=== PATIENT | female | born 1955 | race Caucasian/White ===

== ENCOUNTER 2017-05-18 08:33 | Outpatient (CLI) | payer OTHER ==
--- NOTE | 2017-05-18 13:25 | DEXA Report ---
DEXA SCAN: 05/18/2017 CLINICAL INDICATION: Postmenopausal. TECHNIQUE: Dual energy x-ray absorptiometry (DXA) was performed on a HBCS system. Regions measured are the AP spine, femoral neck, and, if needed, forearm. COMPARISON: None. In accordance with the International Society for Clinical Densitometry (ISCD) guidelines, data from previous exams may be reanalyzed using current recommendations and techniques. This is done to allow a more accurate basis for comparison with the current study. FINDINGS: The data for the lumbar spine is as follows: REGION BMD (g/cm/cm) T-SCORE Z-SCORE L1 1.320 1.6 2.4 L2 1.259 0.5 1.3 L3 1.363 1.4 2.2 L4 1.400 1.7 2.5 TOTAL 1.341 1.3 2.2 NOTE: All evaluable vertebrae are used for classification. The data for the hip is as follows: REGION BMD (g/cm/cm) T-SCORE Z-SCORE Neck 0.912 -0.9 0.1 TOTAL 0.962 -0.4 0.3 NOTE: The femoral neck or total proximal femur, whichever is lowest, is used for classification. IMPRESSION: THE WHO CLASSIFICATION BASED ON THE INTERNATIONAL REFERENCE STANDARD IS NORMAL. THE FRACTURE RISK IS NOT INCREASED. RECOMMENDATION: Patients with diagnosis of osteoporosis or osteopenia should have regular bone mineral density assessment. For those eligible for Medicare, routine testing is allowed once every 2 years. Testing frequency can be increased for patients who have rapidly progressing disease or for those who are receiving medical therapy to restore bone mass. COMMENT: World Health Organization (WHO) definitions for osteoporosis and osteopenia: NORMAL BMD: T-score at -1.0 or higher, fracture risk is low. OSTEOPENIA BMD: T-score between -1.0 and -2.5, fracture risk is increased. OSTEOPOROSIS BMD: T-score at -2.5 or lower, fracture risk high. National Osteoporosis Foundation recommends: 1. Obtain adequate dietary calcium (at least 1200 mg per day) and vitamin D (400 -800 international units per day). 2. Participate, as appropriate, in regular weightbearing and muscle- strengthening exercise. 3. Avoid tobacco use and reduce alcohol and caffeine intake. 4. For more detailed information see the website at www.NOF.org. MTDD
== END 2017-05-18 08:34 | disposition home or self-care (01) ==
LOC: DI 08:33
PROVIDERS: ATTEND Internal Medicine
DX: Z13.820 Encounter for screening for osteoporosis (principal)
CPT/HCPCS: 77080

== ENCOUNTER 2017-07-10 09:52 | Outpatient (CLI) | payer OTHER | END 2017-07-10 09:53 | disposition home or self-care (01) | LOC: LAB 09:52 | PROVIDERS: ATTEND Obstetrics & Gynecology | DX: E00.9 Congenital iodine-deficiency syndrome, unspecified (principal) | CPT/HCPCS: 84439; 84443; 84481 ==

== ENCOUNTER 2017-07-22 10:53 | Outpatient (CLI) | payer OTHER ==
--- NOTE | 2017-07-23 18:40 | Mammography Report ---
DIGITAL SCREENING MAMMOGRAM: 07/22/2017 CLINICAL INDICATION: A 61-year-old with history of benign biopsy, history of late childbearing for s creening. COMPARISON: 07/2016, 06/2015, 05/2013, 03/2012, 02/2011, 02/2010. TECHNIQUE: Routine CC and MLO projections were obtained of the breasts. FINDINGS: The breasts again demonstrate heterogeneously dense fibroglandular parenchyma bilaterally. Postreduction changes are stable. Coarse, typically benign calcifications are present. No suspici ous masses, clustered microcalcifications, or regions of architectural distortion are identified. IMPRESSION: BENIGN FINDINGS. RECOMMENDATION: Routine annual screening unless otherwise clinically indicated. BI-RADS category 2, benign findings. STANDARD QUALIFYING STATEMENTS 1. This examination was reviewed with the aid of Computer-Aided Detection (CAD). 2. A negative or benign imaging report should not delay biopsy if clinically suspicious findings are present. Consider surgical consultation if warranted. More than 5% of cancers are not identified by i maging. 3. Dense breasts may obscure an underlying neoplasm. JOB #: [id number] EXT JOB #:[id number]
== END 2017-07-22 10:54 | disposition home or self-care (01) ==
LOC: DI 10:53
PROVIDERS: ATTEND Obstetrics & Gynecology
DX: Z12.31 Encounter for screening mammogram for malignant neoplasm of breast (principal)
CPT/HCPCS: 77067

== ENCOUNTER 2017-08-13 18:28 | Outpatient (CLI) | payer OTHER ==
--- NOTE | 2017-08-14 09:40 | XRAY Report ---
CERVICAL SPINE THREE VIEWS: 08/13/2017 CLINICAL HISTORY: Neck pain, right arm tingling. COMPARISON: None. FINDINGS: The cervical vertebral bodies are normal in height and alignment. There is mild C5-6 disk space narrowing. The remaining disk spaces are well maintained. The C1-2 relationship is anatomic. No significant facet joint arthropathy. No prevertebral soft tissue swelling. IMPRESSION: EARLY C5-6 DEGENERATIVE DISK DISEASE, OTHERWISE NEGATIVE CERVICAL SPINE. JOB #: [id number] EXT JOB #:[id number]
== END 2017-08-13 18:29 | disposition home or self-care (01) ==
LOC: DI 18:28
PROVIDERS: ATTEND Family Medicine
DX: M50.322 Other cervical disc degeneration at C5-C6 level (principal)
CPT/HCPCS: 72040

== ENCOUNTER 2018-02-04 14:11 | Outpatient (CLI) | payer BC, OTHER ==
--- NOTE | 2018-02-04 17:12 | Ultrasound Report ---
LIMITED UNILATERAL RIGHT BREAST ULTRASOUND: 02/04/2018 COMPARISON: Mammogram 07/22/2017. INDICATION: Palpable lump right breast at 3 o'clock. TECHNIQUE: Sonographic evaluation of the right breast at 3 o'clock, 10 cm from the nipple. FINDINGS: There is no mass. abnormal fluid collection, or dilated duct. No other sonographic abnormality is demonstrated. IMPRESSION: 1. BI-RADS CATEGORY 1, NEGATIVE. 2. RECOMMEND ANNUAL SCREENING MAMMOGRAM IN THE ABSENCE OF ADDITIONAL CLINICAL CONCERNS. TD: 02/04/2018 17:12 MOOK
--- NOTE | 2018-02-04 17:24 | Mammography Report ---
RIGHT DIGITAL DIAGNOSTIC MAMMOGRAM: 02/04/2018 COMPARISON: Mammogram 07/22/2017. INDICATION: Palpable right breast lump at 3 o'clock. TECHNIQUE: Right MLO and CC breast views were performed. FINDINGS: The breast parenchyma is heterogeneously dense which may limit the sensitivity of mammography. No dominant mass, architectural distortion, or concerning cluster of microcalcifications are seen. Focused sonography of the right breast at 3 o'clock, 10 cm from the nipple demonstrates no mass, abnormal fluid collection, or dilated duct. No sonographic abnormalities otherwise. IMPRESSION: 1. BI-RADS CATEGORY 1, NEGATIVE. 2. RECOMMEND ANNUAL SCREENING MAMMOGRAM IN THE ABSENCE OF ADDITIONAL CLINICAL CONCERNS. STANDARD QUALIFYING STATEMENTS 1. This examination was reviewed with the aid of Computed-Aided Detection (CAD) . 2. A negative or benign imaging report should not delay biopsy if clinically suspicious findings are present. Consider surgical consultation if warranted. More than 5 % of cancers are not identified by imaging. 3. Dense breasts may obscure an underlying neoplasm. TD: 02/04/2018 17:23 MOOK
== END 2018-02-04 14:12 | disposition home or self-care (01) ==
LOC: DI 14:11
PROVIDERS: ATTEND Obstetrics & Gynecology
DX: N64.4 Mastodynia (principal)
CPT/HCPCS: 76642

== ENCOUNTER 2018-08-13 15:41 | Outpatient (CLI) | payer BC ==
--- NOTE | 2018-08-16 09:15 | Mammography Report ---
Reason: SCREENING MAMMO Procedure Date: 08/13/2018 Accession Number: [id number] / [id number] Procedure: SHANON - Screening Mammo Dig Bilat CPT Code: FULL RESULT: EXAM: Screening Mammo Dig Bilat DATE: 08/13/2018 4:26 PM CLINICAL HISTORY: 62-year-old female with history of late childbearing and right breast biopsy with benign results. TECHNIQUE: Bilateral CC and MLO views were obtained. COMPARISON: 02/04/2018, 07/22/2017, 08/04/2016, 07/23/2015. FINDINGS: The breasts demonstrate scattered fibroglandular densities bilaterally. What is felt to represent post breast reduction changes are stable. There is a developing asymmetry seen on the left MLO view only in the upper breast 9 cm deep to the nipple. This requires additional spot magnification or tomographic views. No other suspicious masses, clustered microcalcifications, or regions of architectural distortion are identified. IMPRESSION: Incomplete examination RECOMMENDATION: Additional evaluation as above. BIRADS CATEGORY 0: Incomplete examination STANDARD QUALIFYING STATEMENTS: 1. This examination was not reviewed with the aid of Computer-Aided Detection (CAD). 2. A negative or benign imaging report should not delay biopsy if clinically suspicious findings are present. Consider surgical consultation if warrented. More than 5% of cancers are not identified by imaging. 3. Dense breasts may obscure an underlying neoplasm.
== END 2018-08-13 15:42 | disposition home or self-care (01) ==
LOC: DI 15:41
PROVIDERS: ATTEND Radiology Diagnostic Radiology
DX: Z12.31 Encounter for screening mammogram for malignant neoplasm of breast (principal)
CPT/HCPCS: 77067

== ENCOUNTER 2018-09-07 13:59 | Outpatient (CLI) | payer BC ==
--- NOTE | 2018-09-07 16:12 | Mammography Report ---
Reason: ABN MAMMO - LT SP VIEWS Procedure Date: 09/07/2018 Accession Number: [id number] / [id number] Procedure: SHANON - Diag Special Views Dig LT CPT Code: FULL RESULT: EXAM: Diag Special Views Dig LT, Breast Unilateral Limited Ultrasound DATE: 09/07/2018 3:37 PM CLINICAL HISTORY: Follow-up abnormal mammogram. Patient has a history of breast reduction surgery. LEFT BREAST ADDITIONAL VIEWS: TECHNIQUE: Spot compression, true lateral, and repeat CC views COMPARISON: 08/13/2018 FINDINGS: Asymmetric left upper outer quadrant density partially dissipates on additional views. No dominant mass is seen. LEFT BREAST ULTRASOUND: TECHNIQUE: Real-time scanning by the commercial collections specialist of the left upper outer quadrant with saved static images reviewed. FINDINGS: No cystic or solid mass, or posterior shadowing is seen. IMPRESSION: Benign findings likely related to prior reduction surgery. RECOMMENDATION: Follow-up left breast mammogram in 6 months. BIRADS CATEGORY 2: Benign findings STANDARD QUALIFYING STATEMENTS: 1. This examination was reviewed with the aid of Computer-Aided Detection (CAD). 2. A negative or benign imaging report should not delay biopsy if clinically suspicious findings are present. Consider surgical consultation if warrented. More than 5% of cancers are not identified by imaging. 3. Dense breasts may obscure an underlying neoplasm.
== END 2018-09-07 14:00 | disposition home or self-care (01) ==
LOC: DI 13:59
PROVIDERS: ATTEND Family Medicine
DX: R92.8 Other abnormal and inconclusive findings on diagnostic imaging of breast (principal)
CPT/HCPCS: 76642

== ENCOUNTER 2019-06-10 16:53 | Outpatient (CLI) | payer BC | END 2019-06-10 23:59 | disposition home or self-care (01) | LOC: LAB.R 16:53 | PROVIDERS: ATTEND Obstetrics & Gynecology | DX: R30.0 Dysuria (principal) | CPT/HCPCS: 87086 ==

== ENCOUNTER 2019-06-16 10:11 | Outpatient (CLI) | payer BC ==
--- NOTE | 2019-06-16 16:26 | Mammography Report ---
Reason: 6 MO F/U - ABN MAMMO Procedure Date: 06/16/2019 Accession Number: [id number] / [id number] Procedure: SHANON - Diagnostic Dig Bilat CPT Code: FULL RESULT: EXAM: Diagnostic Dig Bilat DATE: 06/16/2019 11:15 AM CLINICAL HISTORY: Diagnostic examination. History of late childbearing. History of right breast biopsy with benign pathology results. Short-term follow-up of previous mammographic evaluation. TECHNIQUE: (B) - Bilateral CC and MLO views were obtained. Left spot CC, right laterally exaggerated CC, left spot MLO and left ML images are also obtained. COMPARISON: 09/07/2018 through 07/23/2015. PARENCHYMAL PATTERN: (A) - The breast(s) demonstrate(s) scattered fibroglandular densities. FINDINGS: Presumed postreduction changes are stable. There are no suspicious masses, calcifications, or areas of distortion. IMPRESSION: Benign findings. BI-RADS category 2. RECOMMENDATION: (ANNUAL) - Recommend routine annual screening mammography. BI-RADS CATEGORY: (2) - Benign Findings. STANDARD QUALIFYING STATEMENTS: 1. This examination was not reviewed with the aid of Computer-Aided Detection (CAD). 2. A negative or benign imaging report should not preclude biopsy if clinically suspicious findings are present. 3. Dense breasts may obscure an underlying neoplasm. 4. This examination was reviewed with the aid of 3D breast imaging (tomosynthesis).
== END 2019-06-16 10:12 | disposition home or self-care (01) ==
LOC: DI 10:11
PROVIDERS: ATTEND Family Medicine
DX: R92.8 Other abnormal and inconclusive findings on diagnostic imaging of breast (principal)
CPT/HCPCS: 77062; 77066

== ENCOUNTER 2019-10-08 07:08 | Outpatient (CLI) | payer BC ==
[2019-10-08 07:38] LABS: BASOPHILS # (AUTO) 0.1 10^3/uL (0.0-0.1); BASOPHILS % (AUTO) 0.6 %; EOSINOPHILS # (AUTO) 0.2 10^3/uL (0.0-0.7); HGB - HEMOGLOBIN 13.8 g/dL (12.0-16.0); LYMPHOCYTES # (AUTO) 3.4 10^3/uL (1.5-3.5); LYMPHOCYTES % (AUTO) 42.4 %; MEAN CORPUSCULAR HEMOGLOBIN 29.8 pg (27.0-31.0); MEAN CORPUSCULAR HGB CONC 33.2 g/dL (32.0-36.0); MEAN CORPUSCULAR VOLUME 89.8 fL (81.0-99.0); MEAN PLATELET VOLUME 10.1 fL (7.9-10.8); MONOCYTES # (AUTO) 0.7 10^3/uL (0.0-1.0); NEUTROPHILS # (AUTO) 3.7 10^3/uL (1.5-6.6); NEUTROPHILS % (AUTO) 45.8 %; PLT - PLATELET COUNT 324 10^3/uL (130-450); RED BLOOD COUNT 4.63 10^6/uL (4.20-5.40); RED CELL DISTRIBUTION WIDTH 13.2 % (12.0-15.0); WHITE BLOOD COUNT 8.1 x10^3/uL (4.8-10.8)
[2019-10-08 07:57] LABS: ALBUMIN 4.1 g/dL (3.2-5.5); ALBUMIN/GLOBULIN RATIO 1.1 (1.0-2.2); ALKALINE PHOSPHATASE 58 IU/L (42-121); ALT ALANINE AMINOTRANSFERASE 39 IU/L (10-60); AST ASPARTATE AMINOTRANSFERASE 26 IU/L (10-42); BILIRUBIN,TOTAL 0.6 mg/dL (0.2-1.0); BUN - BLOOD UREA NITROGEN 25 mg/dL (6-20); CALCIUM 9.4 mg/dL (8.5-10.3); CARBON DIOXIDE - CO2 27 mmol/L (21-32); CHLORIDE 100 mmol/L (101-111); CHOLESTEROL 229 mg/dL; CREATININE 0.8 mg/dL (0.4-1.0); GFR - MDRD 72 (>89); GLUCOSE 137 mg/dL (70-100); HDL CHOLESTEROL 46 mg/dL; LDL CHOLESTEROL,CALCULATED 127 mg/dL; LDL/HDL RATIO 2.8 (<4.4); SODIUM 135 mmol/L (135-145); TOTAL PROTEIN 7.7 g/dL (6.7-8.2); VLDL CHOLESTEROL 56 mg/dL
[2019-10-08 08:17] LABS: HB2 TOTAL 13.8 g/dL; HEMOGLOBIN A1C 0.7 g/dL; HEMOGLOBIN A1C % 6.8 % (4.6-6.2)
[2019-10-08 08:20] LABS: T4 (THYROXINE) 9.95 ug/dL (6.09-12.23)
[2019-10-08 08:24] LABS: THYROID STIMULATING HORMONE 1.44 uIU/mL (0.34-5.60)
== END 2019-10-08 07:09 | disposition home or self-care (01) ==
LOC: LAB 07:08
PROVIDERS: ATTEND Family Medicine
DX: E74.9 Disorder of carbohydrate metabolism, unspecified (principal); E03.9 Hypothyroidism, unspecified; E78.2 Mixed hyperlipidemia; R03.0 Elevated blood-pressure reading, without diagnosis of hypertension
CPT/HCPCS: 36415; 80053; 80061; 83036; 83721; 84436; 84443; 85025

== ENCOUNTER 2019-12-23 10:37 | Outpatient (CLI) | payer OTHER ==
--- NOTE | 2019-12-23 13:26 | XRAY Report ---
Reason: PAINFUL 4TH RT TOE Procedure Date: 12/23/2019 Accession Number: [id number] / [id number] Procedure: XR - Toe(s) RT CPT Code: Final Report FULL RESULT: EXAM: RIGHT TOE RADIOGRAPHY EXAM DATE: 12/23/2019 10:47 AM. CLINICAL HISTORY: Painful fourth right toe. COMPARISON: None. TECHNIQUE: 3 views. FINDINGS: Bones: Normal. No fracture or bone lesion. Joints: There is question of periarticular osteopenia as seen in the proximal aspects of the distal third and fourth phalanx without additional evidence of erosions. No subluxations. Soft Tissues: Normal. No soft tissue swelling. IMPRESSION: Question subtle periarticular osteopenia. This can be seen with inflammatory arthropathies. No related radiographic findings are identified. No acute traumatic injuries detected. RADIA
== END 2019-12-23 10:38 | disposition home or self-care (01) ==
LOC: DI 10:37
PROVIDERS: ATTEND Podiatrist
DX: M79.674 Pain in right toe(s) (principal)
CPT/HCPCS: 73660

== ENCOUNTER 2020-07-18 10:03 | Outpatient (CLI) | payer BC, OTHER ==
--- NOTE | 2020-07-19 07:29 | Mammography Report ---
BILATERAL DIGITAL SCREENING MAMMOGRAM 3D/2D: 07/18/2020 CLINICAL: Routine screening. Comparison is made to exams dated: 06/16/2019 mammogram, 07/22/2017 mammogram, 02/04/2018 mammogram, mammogram, 08/04/2016 mammogram, and 07/23/2015 mammogram - [facility]. The tissue of both breasts is heterogeneously dense. This may lower the sensitivity of mammography. There are benign post operative findings in both breasts. No significant masses, calcifications, or other findings are seen in either breast. There has been no significant interval change. IMPRESSION: BENIGN There is no mammographic evidence of malignancy. A 1 year screening mammogram is recommended. This exam was interpreted at Station ID: [id number]. NOTE: For mammograms, a report in lay terms will be sent to the patient. Approximately 15% of breast malignancies will not be visualized mammographically. In the management of a palpable breast mass, a negative mammogram must not discourage biopsy of a clinically suspicious lesion. Electronically Signed By: Macario goldman/gregg:07/18/2020 16:05:10 ACR BI-RADS Category 2: Benign Finding(s) 3342F PARENCHYMAL PATTERN: (D) - The breast(s) demonstrate(s) heterogeneously dense fibroglandular ruben velázquez. BI-RADS CATEGORY: (2) - 2 RECOMMENDATION: (ANNUAL) - Recommend routine annual screening mammography. [id number] 1 year screening LATERALITY: (B)
== END 2020-07-18 10:04 | disposition home or self-care (01) ==
LOC: DI.N 10:03
DX: Z12.31 Encounter for screening mammogram for malignant neoplasm of breast (principal)
CPT/HCPCS: 77063; 77067

== ENCOUNTER 2021-06-24 09:24 | Outpatient (CLI) | payer OTHER ==
--- NOTE | 2021-06-25 13:56 | Mammography Report ---
BILATERAL DIGITAL SCREENING MAMMOGRAM 3D/2D: 06/24/2021 CLINICAL: Routine screening. Comparison is made to exams dated: 07/18/2020 mammogram, 06/16/2019 mammogram, 09/07/2018 ultrasound, 09/07/2018 mammogram, 02/04/2018 ultrasound, and 02/04/2018 mammogram - [facility]. The tissue of both breasts is heterogeneously dense. This may lower the sensitivity of mammography. There are benign post operative findings in both breasts. No significant masses, calcifications, or other findings are seen in either breast. There has been no significant interval change. IMPRESSION: BENIGN There is no mammographic evidence of malignancy. A 1 year screening mammogram is recommended. This exam was interpreted at Station ID: [id number]. NOTE: For mammograms, a report in lay terms will be sent to the patient. Approximately 15% of breast malignancies will not be visualized mammographically. In the management of a palpable breast mass, a negative mammogram must not discourage biopsy of a clinically suspicious lesion. Electronically Signed By: Aftab arcos/gregg:06/24/2021 13:13:39 ACR BI-RADS Category 2: Benign Finding(s) 3342F PARENCHYMAL PATTERN: (D) - The breast(s) demonstrate(s) heterogeneously dense fibroglandular ruben velázquez. BI-RADS CATEGORY: (2) - 2 RECOMMENDATION: (ANNUAL) - Recommend routine annual screening mammography. [id number] 1 year screening LATERALITY: (B)
== END 2021-06-24 09:25 | disposition home or self-care (01) ==
LOC: DI.N 09:24
DX: Z12.31 Encounter for screening mammogram for malignant neoplasm of breast (principal)

== ENCOUNTER 2021-10-23 16:33 | Outpatient (CLI) | payer OTHER ==
[2021-10-24 00:50] LABS: BACTERIAL VAGINOSIS DNA NEGATIVE (NEGATIVE); CANDIDA GLABRATA DNA NEGATIVE (NEGATIVE); CANDIDA GROUP DNA NEGATIVE (NEGATIVE); CANDIDA KRUSEI DNA NEGATIVE (NEGATIVE); TRICHOMONAS VAGINALIS DNA NEGATIVE (NEGATIVE)
[2021-10-24 01:51] LABS: CHLAMYDIA TRACHOMATIS DNA NEGATIVE (NEGATIVE); NEISSERIA GONORRHOEAE DNA NEGATIVE (NEGATIVE); TRICHOMONAS VAGINALIS DNA NEGATIVE (NEGATIVE)
== END 2021-10-23 23:59 | disposition home or self-care (01) ==
LOC: LAB.N 16:33
PROVIDERS: ATTEND Family Medicine
DX: R10.30 Lower abdominal pain, unspecified (principal)
CPT/HCPCS: 87086; 87491; 87591; 87661; 87801

== ENCOUNTER 2021-11-14 14:00 | Outpatient (CLI) | payer OTHER ==
[2021-11-14 21:56] LABS: BACTERIAL VAGINOSIS DNA NEGATIVE (NEGATIVE); CANDIDA KRUSEI DNA NEGATIVE (NEGATIVE)
[2021-11-14 21:57] LABS: CANDIDA GLABRATA DNA NEGATIVE (NEGATIVE); CANDIDA GROUP DNA NEGATIVE (NEGATIVE); TRICHOMONAS VAGINALIS DNA NEGATIVE (NEGATIVE)
== END 2021-11-14 23:59 | disposition home or self-care (01) ==
LOC: LAB.N 14:00
PROVIDERS: ATTEND Physician Assistant
DX: R30.0 Dysuria (principal)
CPT/HCPCS: 87077; 87086; 87661; 87801

== ENCOUNTER 2021-11-19 08:12 | Day surgery (SDC) | payer OTHER ==
[2021-11-19] MEDS ORDERED: LACTATED RINGERS 1,000 ML IV ONE ×2 (08:46→10:07)
[2021-11-19] MEDS ORDERED: SCOPOLAMINE PATCH TOP ONE (08:48)
--- NOTE | 2021-11-19 09:05 | ANESTHESIA ---
Pre-Anesthesia VS, & Labs - Diagnosis colon polyps - Procedure colonoscopy Vital Signs: Temp Pulse Resp BP Pulse Ox 36.5 C 96 12 155/84 H 100 11/19/21 08:22 11/19/21 08:22 11/19/21 08:22 11/19/21 08:22 11/19/21 08:22 Height: 5 ft 4 in Weight (kg): 77 kg Body Mass Index: 29.1 BMI Classification: Overweight - NPO >8 hours - Is Patient ?: No - Lab Results Current Lab Results: Laboratory Tests 11/19/21 08:34: POC Whole Bld Glucose 128 H Home Medications and Allergies Home Medications: Ambulatory Orders Levothyroxine Sodium [Synthroid] 0 mg 11/18/21 Spironolactone [Aldactone] 0 mg 11/18/21 Thyroid Compound 11/18/21 metFORMIN [Glucophage] 0 mg 11/18/21 Levothyroxine Sodium [Synthroid] 0 mg 11/18/21 Spironolactone [Aldactone] 0 mg 11/18/21 Thyroid Compound 11/18/21 metFORMIN [Glucophage] 0 mg 11/18/21 Allergies/Adverse Reactions: Allergies Allergy/AdvReac Type Severity Reaction Status Date / Time cat dander Allergy Unknown Verified 11/18/21 12:26 sulfamethoxazole Allergy Unknown Verified 11/18/21 12:26 [From Bactrim] trimethoprim [From Bactrim] Allergy Unknown Verified 11/18/21 12:26 Anes History & Medical History - Anesthetic History Anesthesia Complications: reports: No previous complications - Medical History Cardiovascular: reports: High cholesterol Pulmonary: reports: None Gastrointestinal: reports: Hemorrhoids Urinary: reports: Chronic bladder infection Musculoskeletal: reports: None Endocrine/Autoimmune: reports: None Skin: reports: Rosacea, Other - Surgical History Gynecologic: reports: Tubal ligation, Hysterectomy Orthopedic: reports: Arthroscopic surgery Exam General: Alert, Oriented x3 Dental: WNL Mouth Opening: Greater than 4 Fingerbreadths Neck Mobility: Normal Mallampati classification: II Thyromental Distance: greater than 6 cm Respiratory: Lungs clear Cardiovascular: Regular rate Plan Anesthesia Type: Total IV Consent for Procedure(s) Verified and Reviewed: Yes Code Status: Attempt Resuscitation ASA classification: 2-Mild systemic disease Is this case an emergency?: No
[2021-11-19] MEDS ORDERED: LIDOCAINE-MPF 2% 5 ML VIAL ONE (09:26)
[2021-11-19] MEDS ORDERED: PROPOFOL 500 MG/50 ML 500 MG/50 ML VIAL ONE (09:26)
[2021-11-19] MEDS ORDERED: ONDANSETRON 4 MG/2 ML VIAL ONE (09:30)
[2021-11-19] MEDS ORDERED: SCOPOLAMINE PATCH TOP SCH (10:00)
[2021-11-19 10:03] VITALS: BP 146/86
--- NOTE | 2021-11-19 10:28 | ANESTHESIA POST OP EVALUATION ---
Anesthesia Post Eval - Post Anesthesia Eval Vitals: Last Vital Signs Temp 37.2 C 11/19/21 09:42 Pulse 78 11/19/21 10:02 Resp 13 11/19/21 10:02 BP 146/86 H 11/19/21 10:02 Pulse Ox 100 11/19/21 10:02 CV Function Including HR & BP: Stable Pain Control: Satisfactory Nausea & Vomiting: Negative Mental Status: Baseline Respiratory Status: Airway Patent Hydration Status: Satisfactory Anesthesia Complications: None
== END 2021-11-19 08:13 | disposition home or self-care (01) ==
LOC: SDS 08:12
PROVIDERS: ATTEND Surgery
DX: Z12.11 Encounter for screening for malignant neoplasm of colon (principal); K64.4 Residual hemorrhoidal skin tags; K57.30 Diverticulosis of large intestine without perforation or abscess without bleeding; R73.03 Prediabetes; Z79.84 Long term (current) use of oral hypoglycemic drugs
CPT/HCPCS: 45378; J3490; J7120

== ENCOUNTER 2021-11-28 08:45 | Outpatient (CLI) | payer OTHER ==
[2021-11-28 16:52] LABS: BILIRUBIN,URINE NEGATIVE (NEGATIVE); GLUCOSE, URINE (UA) NEGATIVE (NEGATIVE); KETONES,URINE (UA) NEGATIVE (NEGATIVE); LEUKOCYTE ESTERASE, URINE NEGATIVE (NEGATIVE); NITRITE,URINE NEGATIVE (NEGATIVE); OCCULT BLOOD,URINE NEGATIVE (NEGATIVE); PH,URINE 5.5 PH (5.0-7.5); PROTEIN,URINE NEGATIVE (NEGATIVE); UROBILINOGEN,URINE 0.2 (NORMAL) E.U./dL (NORMAL)
[2021-11-28 16:54] LABS: CLARITY,URINE CLEAR (CLEAR)
[2021-11-28 17:00] LABS: BACTERIA,URINE Few /HPF (None Seen); RBC,URINE 0-5 /HPF (0-5); SQUAMOUS EPITHELIAL CELL,UR FEW Squamous (<= Few)
[2021-11-28 21:03] LABS: BACTERIAL VAGINOSIS DNA NEGATIVE (NEGATIVE); CANDIDA GLABRATA DNA NEGATIVE (NEGATIVE); CANDIDA GROUP DNA NEGATIVE (NEGATIVE); CANDIDA KRUSEI DNA NEGATIVE (NEGATIVE); TRICHOMONAS VAGINALIS DNA NEGATIVE (NEGATIVE)
== END 2021-11-28 08:46 | disposition home or self-care (01) ==
LOC: LAB.R 08:45
PROVIDERS: ATTEND Obstetrics & Gynecology
DX: R30.0 Dysuria (principal); N76.0 Acute vaginitis
CPT/HCPCS: 81001; 87086; 87661; 87801

== ENCOUNTER 2022-01-27 16:34 | Outpatient (CLI) | payer OTHER ==
--- NOTE | 2022-01-28 00:13 | XRAY Report ---
PROCEDURE: Knee 2 View LT INDICATIONS: L KNEE EFFUSION TECHNIQUE: 2 views of the left knee were acquired. COMPARISON: None. FINDINGS: Bones: No acute fractures or dislocations. No suspicious bony lesions. Mild to moderate narrowing o f the medial and lateral femorotibial joint spaces appear Soft tissues: Small joint effusion. Calcifications are seen within the medial and lateral femorotibia l compartments. IMPRESSION: 1.No acute osseous abnormality. If symptoms persist or there is continued clinical concern, further e valuation with MRI or CT may be helpful. 2.Chondrocalcinosis. 3.Small joint effusion. Reviewed by: Dayne Velasquez MD on 01/28/2022 12:12 AM PST Approved by: Dayne Velasquez MD on 01/28/2022 12:12 AM PST Station ID: [id number]
== END 2022-01-27 23:59 | disposition home or self-care (01) ==
LOC: DI.N 16:34
PROVIDERS: ATTEND Nurse Practitioner
DX: M25.462 Effusion, left knee (principal); M11.262 Other chondrocalcinosis, left knee

== ENCOUNTER 2022-03-25 13:00 | Outpatient (CLI) | payer OTHER ==
--- NOTE | 2022-03-25 13:33 | XRAY Report ---
PROCEDURE: Knee 3 View LT INDICATIONS: LEFT KNEE PAIN TECHNIQUE: 2 views of the left knee(s) were acquired. AP view of both knees. COMPARISON: 2021. FINDINGS: BONES/JOINT: No acute, displaced fracture or dislocation. The tricompartment joint spaces are maint ained. 5.5 mm lucency underlying the lateral tibial spine, which may reflect fibrocystic change or in traosseous ganglion. Mild height loss of the right lateral joint space. SOFT TISSUES: Calcification of the left lateral menisci. IMPRESSION: 1.Left knee chondrocalcinosis. Reviewed by: Adam Allen MD on 03/25/2022 1:32 PM PDT Approved by: Adam Allen MD on 03/25/2022 1:32 PM PDT Station ID: [id number]
== END 2022-03-25 23:59 | disposition home or self-care (01) ==
LOC: DI.WOS 13:00
PROVIDERS: ATTEND Physician Assistant
DX: M11.262 Other chondrocalcinosis, left knee (principal)

== ENCOUNTER 2024-06-28 09:10 | Outpatient (CLI) | payer MEDICARE ==
--- NOTE | 2024-06-29 08:08 | Mammography Report ---
BILATERAL DIGITAL SCREENING MAMMOGRAM 3D/2D: 06/28/2024 CLINICAL: Routine screening. Comparison is made to exams dated: 07/02/2023 mammogram, 06/26/2022 mammogram, 06/24/2021 mammogram, 07/18 mammogram, 06/16/2019 mammogram, and 09/07/2018 ultrasound - [facility]. Both breasts are heterogeneously dense, which may obscure small masses (category c / 51-75% glandular tissue). There are benign post operative findings in both breasts. No significant masses, calcifications, or other findings are seen in either breast. There has been no significant interval change. IMPRESSION: BENIGN There is no mammographic evidence of malignancy. A 1 year screening mammogram is recommended. Based on the Tyrer Cuzick model (a risk assessment model) the patient's lifetime risk is 8.8% and her 10 year risk is 5.2%. According to the ACR, ACS, and NCCN guidelines, an annual breast MRI exam laureen g with mammogram is recommended if the patient's lifetime risk is 20% or greater. This exam was interpreted at Station ID: [id number]. NOTE: For mammograms, a report in lay terms will be sent to the patient. Approximately 15% of breast malignancies will not be visualized mammographically. In the management of a palpable breast mass, a negative mammogram must not discourage biopsy of a clinically suspicious lesion. Electronically Signed By: Reena Hernandez M.D., Ph.D. carolyn/gregg:06/29/2024 05:53:34 letter sent: No_Letter ACR BI-RADS Category 2: Benign Finding(s) 3342F PARENCHYMAL PATTERN: (D) - The breast(s) demonstrate(s) heterogeneously dense fibroglandular parmarthay ma. BI-RADS CATEGORY: (2) - 2 RECOMMENDATION: (ANNUAL) - Recommend routine annual screening mammography. [id number] 1 year screening LATERALITY: (B)
== END 2024-06-28 09:11 | disposition home or self-care (01) ==
LOC: DI.N 09:10
DX: Z12.31 Encounter for screening mammogram for malignant neoplasm of breast (principal); R92.333 Mammographic heterogeneous density, bilateral breasts